=== PATIENT | male | born 1985 | race Caucasian/White ===

== ENCOUNTER 2024-04-21 14:21 | Day surgery (SDC) | payer MEDICAID, SELFPAY ==
[~2024-04-21] VITALS: Ht 177.8 cm; Wt 69.9 kg
[2024-04-21] MEDS ORDERED: fentaNYL 100 MCG/2 ML INJECTION As Ordered ONE (14:37)
[2024-04-21] MEDS ORDERED: ROCURONIUM BROMIDE 50MG/5ML VIAL As Ordered ONE (14:37)
[2024-04-21] MEDS ORDERED: LIDOCAINE 2% 100MG/5ML SDV (FOR ANES.) As Ordered ONE (14:37)
[2024-04-21] MEDS ORDERED: SUGAMMADEX SODIUM 500 MG/5 ML VIAL (BRIDION) As Ordered ONE (14:37)
[2024-04-21] MEDS ORDERED: ONDANSETRON 4MG 2ML VIAL As Ordered ONE (14:37)
[2024-04-21] MEDS ORDERED: MIDAZOLAM INJ 2MG/2ML VIAL As Ordered ONE (14:37)
[2024-04-21] MEDS ORDERED: propofoL 200 MG/20 ML VIAL As Ordered ONE (14:37)
[2024-04-21] MEDS ORDERED: ACETAMINOPHEN 1000MG/100ML IV BAG As Ordered ONE (15:19)
[2024-04-21] MEDS ORDERED: ESMOLOL INJ 100MG/10ML VIAL As Ordered ONE (15:29)
[2024-04-21] MEDS: LIDOCAINE W/EPINEPHRINE 1% 20ML VIAL As Ordered ONE (15:30)
[2024-04-21 16:35] VITALS: BP 139/78; TEMP 98.3; O2SAT 96
== END 2024-04-21 16:46 | disposition home or self-care (01) ==
LOC: M SDC 14:21
PROVIDERS: ATTEND Otolaryngology
DX: J36 Peritonsillar abscess (principal); Z88.5 Allergy status to narcotic agent
CPT/HCPCS: 42700; J0131; J1100; J1805; J2250; J2405; J3010